=== PATIENT | male | born 1980 | race Caucasian/White ===

== ENCOUNTER → 2016-08-08 | Outpatient (CLI) | payer BC ==
[~2016-08-08] MED LIST: CYCL10TA2 PO; ESOM20CA PO; TRAM50TA PO
--- NOTE | 2016-08-09 08:35 | KCIC ---
Bilateral digital diagnostic mammograms with CAD: HISTORY Bilateral breast lumps. COMPARISON Baseline exam. FINDINGS Breast density category A. The skin and nipples show no abnormalities. No abnormal lymph nodes are seen in the axilla. The breast parenchyma is predominately fatty. There are no dominant masses, suspicious calcifications or architectural distortions. IMPRESSION No evidence of malignancy. Ultrasound to follow. This study was interpreted with the benefit of Computerized Aided Detection (CAD). Mammography is not 100% sensitive in detecting breast cancer. Therefore, a self breast exam and a clinical breast exam are very important. A negative mammogram does not negate a clinically suspicious finding and should not result in a delay in biopsying a clinically suspicious abnormality. BI-RADS category 0: Incomplete. Ultrasound to follow. Bilateral breast ultrasound: Ultrasound examination was performed bilaterally. In the right breast at the 4 o'clock position 5 centimeters from the nipple, there is a 2.4 centimeter hyperechoic lesion consistent with a lipoma. No other cystic or solid lesions are seen. No abnormal lymph nodes are seen in the right axilla. In the left breast, there is a hyperechoic 7.9 millimeter lesion in the 7 o'clock position 6 centimeters from the nipple consistent with a lipoma. In the 2 o'clock position 4 centimeters from the nipple, there is a hyperechoic circumscribed lesion measuring 1.6 centimeters in greatest dimension consistent with a lipoma. In the 1 o'clock position 1 centimeter from the nipple, there is a 8.2 millimeter lesion consistent with a small lipoma. No suspicious nodules are seen. No abnormal lymph nodes are seen in the axilla. Impression: Hyperechoic lesions bilaterally consistent with lipoma corresponding to the areas of clinical concern. No suspicious lesions seen. Recommend clinical followup. BI-RADS category 2: Benign. This patient's information has been entered into a reminder system for the patient to be notified with the results of this examination and a target date for her next mammograms. This patient's information has been entered into a reminder system for the patient to be notified with the results of this examination and a target date for her next mammograms. Electronically signed by: Ciara Bergeron MD (Aug 09, 2016 08:31:25)
== END | disposition home or self-care (01) ==
LOC: KCIC MAMMO 07:43
DX: N63 Unspecified lump in breast (principal)
CPT/HCPCS: 76641; 77051; G0204